=== PATIENT | female | born 1940 | race Caucasian/White ===

== ENCOUNTER → 2018-08-19 08:44 | Outpatient (CLI) | payer MEDICARE, OTHER, SELFPAY ==
--- NOTE | 2018-08-19 09:04 | RAD_ITS ---
STUDY: X-RAY CHEST REASON FOR EXAM: Female, 78 years old. Preop for total knee replacement. TECHNIQUE: PA and lateral views of the chest. COMPARISON: Prior study of May 02, 2011 are not available for comparison at the time of this dictation. FINDINGS: There is mild elevation/eventration of the anterior right diaphragm with the appearance of some separation of the diaphragmatic leaflets on the frontal view. The lungs are otherwise clear and expanded. There is no demonstrated pleural abnormality. Normal size heart. Normal mediastinum and audrey. Normal visualized pulmonary arteries. There is mild atherosclerotic calcification of the aortic arch. There are diffuse degenerative changes of the visualized thoracic spine. Normal visualized ribs, clavicles, and shoulders. There is no demonstrated abnormality of the visualized soft tissue structures of the upper abdomen. RAD/Chest PA and Lateral IMPRESSION: No acute cardiopulmonary disease. Electronically Signed: Iron Ingram MD at 19:45 EST , Service support ,
--- NOTE | 2018-08-19 09:07 | EKG12_ITS ---
Test Reason : PRE OP Blood Pressure : / mmHG Vent. Rate : 074 BPM Atrial Rate : 074 BPM P-R Int : 178 ms QRS Dur : 146 ms QT Int : 440 ms P-R-T Axes : 071 054 083 degrees QTc Int : 488 ms Normal sinus rhythm Left bundle branch block Abnormal ECG Confirmed by AMANUEL MCKEON, JIMMY ([id number]), city editor LOLITA WELDON ([id number]) on 08/20/2018 2:41:11 PM Referred By: Clarke Weldon Confirmed By:JIMMY VITAL MD
[2018-08-19 10:13] LABS: Hemoglobin A1c 8.9 % (4.2-6.3)
== END ==
PROVIDERS: Family Provider Internal Medicine; PCP Internal Medicine; Referring Provider Orthopaedic Surgery; Visit Provider Orthopaedic Surgery
DX: E11.9 Type 2 diabetes mellitus without complications (principal); Z01.810 Encounter for preprocedural cardiovascular examination
CPT/HCPCS: 36415; 71046; 83036; 93005

== ENCOUNTER 2018-11-11 05:52 | Day surgery (SDC) | payer MEDICARE, OTHER, SELFPAY ==
--- NOTE | 2018-11-05 10:27 | EKG12_ITS ---
Test Reason : PREOP Blood Pressure : / mmHG Vent. Rate : 077 BPM Atrial Rate : 077 BPM P-R Int : 190 ms QRS Dur : 142 ms QT Int : 424 ms P-R-T Axes : 052 -50 109 degrees QTc Int : 479 ms Normal sinus rhythm Left axis deviation Left bundle branch block Abnormal ECG Confirmed by STALIN MCKEON, TIFFANIE ([id number]), industrial editor PREMA ABDI ([id number] on 11/08/2018 5:22:53 PM Referred By: Aimee Ortega Confirmed By:TIFFANIE GANT MD
[2018-11-05 10:47] LABS: Hematocrit 36.4 % (37-47); Hemoglobin 11.2 g/dl (12.0-15.0); Mean Corp Hgb Conc 30.8 g/gl (32-36); Mean Corpuscular Hgb 24.6 pg (27.0-32.0); Mean Platelet Vol. 11.6 fl (6.2-12.0); Platelet Count 209 K/mm3 (150-450); RBC Distribution Width CV 15.6 % (11.6-14.6); RBC Distribution Width SD 45.4 fl (35.1-43.9); Red Blood Count 4.55 M/mm3 (4.2-5.4); Scan Indicated on CBC? Y/N NO; White Blood Count 7.2 K/mm3 (4.4-11.0)
[2018-11-05 10:53] LABS: Prothrombin Time (Protime)PT. 12.7 SECONDS (11.7-14.9)
[2018-11-05 10:54] LABS: Partial Thromboplast Time 25.2 Seconds (24.1-36.2)
[2018-11-05 11:22] LABS: Anion Gap 7 (5-15); BUN 21 mg/dL (7-18); BUN/Creat Ratio 20.8 RATIO (10-20); Calcium,Total 9.3 mg/dL (8.5-10.1); Chloride 105 mmol/L (98-107); Creatinine, Serum 1.01 mg/dL (0.55-1.02); EST Glomerular Filtration Rate 56 mL/min (>60); Est Glom Filt Rate - Afr Amer 68 mL/min (>60); Glucose 160 mg/dL (74-106); Hemoglobin A1c 7.8 % (4.2-6.3); Potassium 4.4 mmol/L (3.5-5.1); Sodium Level 138 mmol/L (136-145); Thyroid Stim Hormone (TSH) 0.39 uIU/mL (0.358-3.74)
[2018-11-11] VITALS (9 sets, daily range): BP systolic 100–173; BP diastolic 59–79; PULSE 64–77; RESP 16–18; TEMP 36.2–37.2; O2SAT 95–100; BMI 31.6
[2018-11-11 06:35] LABS: Bedside Glucose 161 mg/dL (70-110)
--- NOTE | 2018-11-11 07:30 | MASS_PTH ---
PATIENT: DANIELLE AGUILERA LOC: [facility] – [place] U#:[id number] AGE/SX: 78/F ROOM: RE11/11/[address]: Dr. Adali Schmidt, MDDOB: 1940 BED: DIS: 11/11/2018 SPEC #: [id number] RECD: 11/11/18 11:36 STATUS: PENNY SUMA #: [id number] ROZ: 11/11/18 07:[address]: Adali Schmidt DEPT: SURGICAL PATHOLOGY RECD BY: Timmy Whaley ENTERED: 11/11/18 13:11 SP TYPE: Mass OTHR DR: MD Dr. Clarke Duque MD Tissues: A - Fallopian tube B - Left ovary Procedures: Surgery Specimen Level IV Surgery Specimen Level V HEADER OPERATION: Laparoscopic bilateral salpingectomy, left oophorectomy PRE-OP DIAGNOSIS: Left ovarian mass TISSUE SUBMITTED: A - Right fallopian tube, B - Left fallopian tube, left ovary MICROSCOPIC DIAGNOSIS A. Right fallopian tube, salpingectomy: Portion of fallopian tube including fimbrial end - no pathologic diagnosis. B. Left fallopian tube and ovary: Portion of fallopian tube - no pathologic diagnosis. Ovary - simple serous cystadenoma (6 cm in greatest dimension). YAZMIN:anat 11/12/18 MICROSCOPIC DESCRIPTION Slides are reviewed. GROSS DESCRIPTION A - Received in fixative is one container labeled with the patient's name and designated right fallopian tube. The specimen consists of a portion of fallopian tube measuring 1.5 cm in length and 0.5 cm in diameter. The fimbrial end is identified. Sections reveal unremarkable cut surfaces. The entire specimen is submitted in one cassette. B - Received in fixative is one container labeled with the patient's name and designated left fallopian tube, left ovary. The specimen consists of a cystic ovary and three detached pieces of dominique-pink tissue, possibly pieces of fallopian tube. One of the pieces appears to consist of fimbrial end. The detached pieces of possible fallopian tube measures in aggregate 2 x 2 x 0.5 cm. The detached cystic ovary measures 6 x 5 x 3 cm and weighs 45 gm. The outer surface is smooth without any cut lesion and is inked black. The ovary consists of a unilobular cyst filled with clear fluid. No papillations are identified. The cyst wall is smooth and measures 0.1 cm in thickness. It Infrastructure Architect sections are submitted in four cassettes as follows: 1 - detached pieces of tissue, possible fallopian tube fragments, 2-4 - ovary. / YAZMIN:anat 11/11/18 TC:1 CPT: 20432, 86706
--- NOTE | 2018-11-11 08:38 | PCM.OPRPT ---
Report of Operation Date of Procedure: 11/11/18 Pre-Operative Diagnosis: Left ovarian mass Post-Operative Diagnosis: same Surgery/Procedure Performed:: Laparoscopic Lysis of ahdesions, LSO, Right salpingectomy Description of Surgical Findings:: Large left adnexal mass with adhesions to pelvic side wall. Omental adhesions to pelvic side liriano, vaginal cuff and bladder. tv news director: Aimee Ortega Type of Anesthesia:: General Special Medications: 0.5% marcaine Specimen's removed: Right tube, Left tube and ovary with cyst Drains: none Estimated Blood Loss (mL): 20 Fluids Replaced: 1000 Description of Procedure: Operative note: After informed consent was obtained patient was taken to the operating room she was placed in supine position she was given anesthesia. She was then placed in the [facility] stirrups and she was prepped and draped in normal sterile fashion. Bladder was drained prior to the start of procedure approximately 25cc of clear yellow urine was expelled. At this time attention was turned to the vaginal portion where Sponge stick was placed. After Marcaine was injected in umbilicus a small incision was made and fascia was grasped with koker clamp. fascia incised with knife and tagged with 0-vicryl on UR6 needle. CO2 gas was used to insufflate the intra-abdominal cavity. Upon inspection had omental adhesions to bladder, vaginal cuff and pelvic side liriano. the large left ovarian cyst adherant to side wall. At this time then the RLQ and LLQ ports were placed again Marcaine was injected small incision was made a knife and the 5 mm trocar was placed. Ahesions were removed with ligasure in clear spaces- once visulaizeation was achieved the right tube was removed- ovary remained as IP ligament was not able to be identified. attention then turned to Left where adhesions around cyst were taken down, TUbe removed and once IP was visualized it was sealed and ligated. Once cyst was free it was placed in 10mm bag and removed intact through umbilical port. Irrigation performed, good hemostasis and left Ureter was appreciated peristalsing. Manuel placed of Left pelvic side wall. Good hemostasis was appreciated. Trochars removed. The umbilical incision was closed with O-vicryl on UR 6 in running fashion. Skin was closed using 4-0 Monocryl in a subcutaneous fashion. Dermabond glue was placed. Instrument lap and needle counts were correct ?2. The vaginal sponge stick removed. Vaginal sweep was performed it was negative. There were no complications anticipated normal postoperative course for this patient. Grafts/Implants Used: none - Complications none - Admit VTE Documentation VTE Present on Admission: Yes VTE Mechan Device Prophylaxis: SCD's VTE Pharm Prophylaxis ordered?: No
[2018-11-11] MEDS: Bupivacaine Mpf 0.5% 30 ML VIAL (08:48)
--- NOTE | 2018-11-11 08:48 | OP.PCM_ITS ---
Report of Operation Date of Procedure: 11/11/18 Pre-Operative Diagnosis: Left ovarian mass Post-Operative Diagnosis: same Surgery/Procedure Performed:: Laparoscopic Lysis of ahdesions, LSO, Right salpingectomy Description of Surgical Findings:: Large left adnexal mass with adhesions to pelvic side wall. Omental adhesions to pelvic side liriano, vaginal cuff and bladder. emc storage architect: Aimee Ortega Type of Anesthesia:: General Special Medications: 0.5% marcaine Specimen's removed: Right tube, Left tube and ovary with cyst Drains: none Estimated Blood Loss (mL): 20 Fluids Replaced: 1000 Description of Procedure: Operative note: After informed consent was obtained patient was taken to the operating room she was placed in supine position she was given anesthesia. She was then placed in the [facility] stirrups and she was prepped and draped in normal sterile fashion. Bladder was drained prior to the start of procedure approximately 25cc of clear yellow urine was expelled. At this time attention was turned to the vaginal portion where Sponge stick was placed. After Marcaine was injected in umbilicus a small incision was made and fascia was grasped with koker clamp. fascia incised with knife and tagged with 0-vicryl on UR6 needle. CO2 gas was used to insufflate the intra-abdominal cavity. Upon inspection had omental adhesions to bladder, vaginal cuff and pelvic side liriano. the large left ovarian cyst adherant to side wall. At this time then the RLQ and LLQ ports were placed again Marcaine was injected small incision was made a knife and the 5 mm trocar was placed. Ahesions were removed with ligasure in clear spaces- once visulaizeation was achieved the right tube was removed- ovary remained as IP ligament was not able to be identified. attention then turned to Left where adhesions around cyst were taken down, TUbe removed and once IP was visualized it was sealed and ligated. Once cyst was free it was placed in 10mm bag and removed intact through umbilical port. Irrigation performed, good hemostasis and left Ureter was appreciated peristalsing. Manuel placed of Left pelvic side wall. Good hemostasis was appreciated. Trochars removed. The umbilical incision was closed with O-vicryl on UR 6 in running fashion. Skin was closed using 4-0 Monocryl in a subcutaneous fashion. Dermabond glue was placed. Instrument lap and needle counts were correct ?2. The vaginal sponge stick removed. Vaginal sweep was performed it was negative. There were no complications anticipated normal postoperative course for this patient. Grafts/Implants Used: none - Complications none - Admit VTE Documentation VTE Present on Admission: Yes VTE Mechan Device Prophylaxis: SCD's VTE Pharm Prophylaxis ordered?: No
--- NOTE | 2018-11-11 08:51 | DCINST_ITS ---
You will use the following diet at home:: Regular Your food should be the consistency of: Regular Discharge Activity: Return to Normal Activity, May not drive while taking narcotic pain medications., May Shower May resume sexual activity in: 2 weeks Lifting Restrictions: 20 Call your doctor if your incision/area has: Continuous Slow Oozing, Sudden Increased Bleeding, Increased Pain/ Swelling, Increased Redness, Foul Smelling Discharge, Swelling at the incision site Call your doctor if you observe: Fever of 101 or Higher, Inability to urinate, Uncontrolled pain Cleanse incision/area with: Soap & Water, - - don't pick off skin glue. may let soap and water run over incisions and dab dry. Allergies/Adverse Reactions: Allergies No Known Allergies Allergy (Verified 11/04/18 10:14) Medications to take at Discharge Albuterol IH (ProAir) [Proair Hfa (SP)Vent Pts] 1 - 2 puff INHALATION Q6H PRN PRN 11/04/18 Aspirin E.C. [Ecotrin] 81 mg PO DAILY@0800 11/04/18 Atenolol [Tenormin (Beta Raymond)] 50 mg PO QHS 11/04/18 Cholecalciferol (VIT D3) [Vitamin D] 1,000 unit PO DAILY 11/04/18 Glimepiride [Amaryl] 4 mg PO DAILY 11/04/18 Krill/Om-3/Dha/Epa/Phospho/Ast [Krill Oil 500 mg Softgel] 1 each PO DAILY 11/04/18 Lansoprazole [Prevacid] 30 mg PO QHS 11/04/18 Levothyroxine [Synthroid] 125 mcg PO DAILY 11/04/18 Losartan Potassium [Cozaar] 100 mg PO DAILY 11/04/18 Metformin HCl [Glucophage] 500 mg PO BIDCM 11/04/18 Mometasone Furoate [Asmanex 220 mcg Twisthaler] 2 puff INHALATION DAILY 11/04/18 Rosuvastatin Calcium [Crestor] 5 mg PO FRSA 11/04/18 Tolterodine Tartrate [Detrol LA] 4 mg PO DAILY 11/04/18 Orders to be completed after discharge: 12 Lead EKG [CVS] Time Frame: 11/04/18, Facility: [facility], Location: Cardiovascular Services Partial Thromboplast Time Time Frame: 11/04/18, Location: Laboratory Hemoglobin A1c Time Frame: 11/04/18, Location: Laboratory Basic Metabolic Profile (BMP) Time Frame: 11/04/18, Location: Laboratory CBC-Complete Blood Cnt No Diff Time Frame: 11/04/18, Location: Laboratory Prothrombin Time w/INR Time Frame: 11/04/18, Location: Laboratory Thyroid Stim Hormone (TSH) Time Frame: 11/04/18, Location: Laboratory Primary Care Physician: Lydia Joseph MD [Primary Care Provider] - Test Results: Test results from this visit will be discussed in further detail at your follow- up appointment, if applicable. Please Follow Up With: Adali Schmidt MD When: as scheduled.
[2018-11-11 09:46] LABS: Bedside Glucose 218 mg/dL (70-110)
== END 2018-11-11 11:44 | disposition home or self-care (01) ==
LOC: SDC 05:52 → AC 05:53
PROVIDERS: Obstetrics & Gynecology; Family Provider Internal Medicine; PCP Internal Medicine; Referring Provider Obstetrics & Gynecology; Visit Provider Obstetrics & Gynecology
PROC: (CPT 58661; principal; 2018-11-11 07:15)
DX: D27.1 Benign neoplasm of left ovary (principal); N73.6 Female pelvic peritoneal adhesions (postinfective); I25.10 Atherosclerotic heart disease of native coronary artery without angina pectoris; E78.5 Hyperlipidemia, unspecified; E03.9 Hypothyroidism, unspecified; E11.9 Type 2 diabetes mellitus without complications; I10 Essential (primary) hypertension; Z87.891 Personal history of nicotine dependence; Z90.710 Acquired absence of both cervix and uterus; D64.9 Anemia, unspecified; K21.9 Gastro-esophageal reflux disease without esophagitis; Z95.5 Presence of coronary angioplasty implant and graft; J45.909 Unspecified asthma, uncomplicated; I44.7 Left bundle-branch block, unspecified; R94.31 Abnormal electrocardiogram [ECG] [EKG]; R06.02 Shortness of breath
CPT/HCPCS: 58660; 58661; 36415; 80048; 82962; 83036; 84443; 85027; 85610; 85730; 88302; 88305; 88307; 93005; J7120; J2405

== ENCOUNTER → 2023-11-16 | Outpatient (CLI) | payer MEDICARE, OTHER, SELFPAY ==
--- NOTE | 2023-11-16 13:40 | RAD_ITS ---
EXAM: XR CHEST, 2 VIEWS CLINICAL INDICATION: SOB TECHNIQUE: Frontal and lateral views of the chest. COMPARISON: 2 views of the chest FINDINGS: LUNGS AND PLEURAL SPACES: Unremarkable. No consolidation or edema. No pneumothorax. No effusion. HEART: Unremarkable. Cardiac silhouette not enlarged. MEDIASTINUM: Surgical changes of the mediastinum. BONES/JOINTS: Unremarkable. No acute fracture. SOFT TISSUES: Unremarkable. RAD/Chest PA and Lateral IMPRESSION: No acute findings in the chest. Electronically Signed: Jasson Ward MD at 7:52 EST ,
== END | disposition home or self-care (01) ==
LOC: RAD 13:40
PROVIDERS: PCP Internal Medicine; Referring Provider Internal Medicine Pulmonary Disease; Visit Provider Internal Medicine Pulmonary Disease
DX: R06.02 Shortness of breath (principal)
CPT/HCPCS: 71046